=== PATIENT | male | born 1970 | race American Indian/Alaskan Native ===

== ENCOUNTER 2017-02-10 09:53 | Day surgery (SDC) | payer OTHER ==
--- NOTE | 2017-02-10 11:14 | Anesthesia Consultation ---
Anesthesia Consult and Med Hx Date of service: 02/10/17 - Airway Anesthetic Teeth Evaluation: Good ROM Head & Neck: Adequate Mental/Hyoid Distance: Adequate Mallampati Class: Class II Intubation Access Assessment: Probably Good - Pulmonary Exam CTA: Yes - Cardiac Exam Cardiac Exam: RRR - Pre-Operative Health Status ASA Pre-Surgery Classification: ASA1 Proposed Anesthetic Plan: General - Pulmonary Hx Smoking: No Hx Sleep Apnea: No (SHILOH PRE SCREEN LOW RISK) - Cardiovascular System Hx Hypertension: No - Central Nervous System Hx Psychiatric Problems: No - Gastrointestinal Hx Gastroesophageal Reflux Disease: No - Endocrine Hx Renal Disease: No Hx Insulin Dependent Diabetes: No - Hematic Hx Anemia: No Hx Sickle Cell Disease: No - Other Systems Hx Alcohol Use: No Hx Substance Use: No Hx Cancer: No Hx Obesity: No
--- NOTE | 2017-02-10 11:15 | Anesthesia Day of Surgery ---
Anesthesia Day of Surgery - Day of Surgery Patient Examined: Yes Patient H&P Reviewed: Yes Patient is NPO: Yes
[2017-02-10] MEDS ORDERED: VERSED IV NR (11:30)
[2017-02-10] MEDS ORDERED: LACTATED RINGERS 1,000 ML IV SCH (11:30)
[2017-02-10] MEDS ORDERED: PEPCID IV NR (11:30)
[2017-02-10] MEDS ORDERED: ANCEF/STERILE WATER 2 GM/20 ML IV NR (11:40)
[2017-02-10] MEDS ORDERED: SUBLIMAZE ONE (14:16)
[2017-02-10] MEDS ORDERED: ZOFRAN ONE (14:16)
[2017-02-10] MEDS ORDERED: DECADRON ONE (14:16)
[2017-02-10] MEDS ORDERED: DIPRIVAN 10 MG/ML IV ONE (14:16)
[2017-02-10] MEDS ORDERED: XYLOCAINE MPF 2% ONE (14:16)
--- NOTE | 2017-02-10 15:27 | Short Stay Summary ---
Short Stay Documentation Date of service: 02/10/17 - History H&P: obtained from office - Allergies and Medications Current Medications: Allergies No Known Allergies Allergy (Verified 02/09/17 09:46) Home Medications Medication Instructions Recorded Confirmed Last Taken Type Ciprofloxacin (Nf) [Cipro] 500 mg PO BID 02/09/17 02/09/17 Unknown History HYDROcodone/ACETAMINOPHEN 1 tab PO PRN PRN 02/09/17 02/09/17 Unknown History [Hydrocodon-Acetaminophen 5-325] Ibuprofen [Motrin] 800 mg PO Q8HR PRN 02/09/17 02/10/17 02/08/17 History Ketorolac [Toradol] 10 mg PO Q6H PRN 02/09/17 02/10/17 02/08/17 History Ondansetron [Zofran TAB] 4 mg PO Q8HR PRN 02/09/17 02/10/17 02/07/17 History Tamsulosin [Flomax] 0.4 mg PO QDAY 02/09/17 02/10/17 02/07/17 History Active Medications Cefazolin Sodium (Ancef/Sterile Water 2 Gm/20 Ml) 2 gm IV PREOP NR Stop: 02/10/17 23:59 Famotidine (Pepcid) 20 mg IV PREOP NR Stop: 02/10/17 21:00 Last Admin: 02/10/17 14:07 Dose: 20 mg Lactated Ringer's (Lactated Ringers) 1,000 mls @ 75 mls/hr IV DIRECT SMILEY Last Admin: 02/10/17 14:06 Dose: 75 mls/hr Midazolam HCl (Versed) 2 mg IV PREOP NR Stop: 02/10/17 21:00 Last Admin: 02/10/17 14:07 Dose: 2 mg - Brief post op/procedure progress note Date of procedure: 02/10/17 Pre-op diagnosis: Right Ureteral stone 7mm Post-op diagnosis: same Procedure: Right ureteral eswl Anesthesia: GETA Findings: good vis Surgeon: WICHO ESTEBAN Estimated blood loss: minimal Pathology: none Condition: stable - Hospital course Hospital course: or pacu home - Disposition Condition at discharge: Good Disposition: DISCHARGED TO HOME OR SELFCARE Short Stay Discharge Plan Activity: advance as tolerated Diet: advance as tolerated Follow up with: WICHO ESTEBAN MD [Staff Physician] - 7 Days
[2017-02-10 15:48] VITALS: BP 143/88
--- NOTE | 2017-02-10 15:49 | Post Anesthesia Evaluation ---
- Post Anesthesia Evaluation Patient Participated: Yes Airway Patent: Yes Stable Respiratory Function: Yes Nausea/Vomiting: No Temp > 96.8F: Yes Pain Manageable: Yes Adequeate Hydration: Yes Anesthesia Complications: No
--- NOTE | 2017-02-11 08:30 | XRay Report ---
Portable abdomen: History: Kidney stone. Findings: No radiopaque calculus abnormal calcification. Stool in colon. No bowel distention. Impression: Essentially negative abdomen. The
--- NOTE | 2017-02-13 22:28 | Operative Report ---
PREOPERATIVE DIAGNOSIS: Right ureteropelvic junction stone, 7 mm. POSTOPERATIVE DIAGNOSIS: Right ureteropelvic junction stone, 7 mm. PROCEDURE: Right ureteral ESWL. ANESTHESIA: General. FINDINGS: Good visualization. SURGEON: Marciano Lang M.D. ESTIMATED BLOOD LOSS: Minimal. PATHOLOGY: None. CONDITION: Stable. CLINICAL INDICATIONS: The patient was counseled on RCBA, risks including bleeding risks, options including ureteroscopy, expectant management for a longer period of time. The patient did want to proceed understanding his risks and wanted to proceed with ESWL. Had antibiotics and SCDs. DESCRIPTION OF PROCEDURE: The patient was transferred to OR suite in supine position. Biplanar fluoroscopy was used to target the stone with an F2. There was good visualization of the stone. Anesthesia begun, 2500 shocks were delivered, intermittent repositioning done as necessary, good visualization of the stones throughout the procedure. At the end of the procedure, there was only mild decrease in density of the stone. The patient was awakened and transferred to PACU. PLAN: Given the apparent density, the patient may need additional procedures, so this will be staged for additional procedures. JOB# [id number] ATS/NTS
== END 2017-02-10 16:52 | disposition home or self-care (01) ==
LOC: OR 09:53
PROVIDERS: ATTEND Urology
DX: N20.1 Calculus of ureter (principal); Z82.69 Family history of other diseases of the musculoskeletal system and connective tissue; Z82.49 Family history of ischemic heart disease and other diseases of the circulatory system
CPT/HCPCS: 50590; 74000; J0690; J1100; J2250; J2405; J2704; J3010; J7120